=== PATIENT | male | born 1990 | race Caucasian/White ===

== ENCOUNTER → 2018-03-10 10:26 | Outpatient (CLI) | payer MEDICARE, MEDICAID, SELFPAY ==
--- NOTE | 2018-03-10 10:35 | XR_ITS ---
XR tibia fibula LT 2V CLINICAL INDICATION: Follow-up fracture ITS.REASON: FX LT PROX FIB ORDERING PHYSICIAN: Neeraj Dunn MD PATIENT AGE: 28 years FINDINGS: There are no previous exams available for comparison. No displaced fracture is evident. On the lateral view there is some cortical irregularity involving the anterior aspect of the neck of the fibula which could be due to a nondisplaced fracture. Please correlate with old studies if available. IMPRESSION: Possible nondisplaced fracture of the fibular neck anteriorly
== END ==
PROVIDERS: PCP Internal Medicine Adolescent Medicine; Visit Provider Internal Medicine Adolescent Medicine
DX: S82.832D Other fracture of upper and lower end of left fibula, subsequent encounter for closed fracture with routine healing (principal)
CPT/HCPCS: 73590

== ENCOUNTER → 2018-03-13 13:32 | Outpatient (CLI) | payer OTHER, MEDICARE, MEDICAID, SELFPAY ==
--- NOTE | 2018-03-13 13:35 | XR_ITS ---
XR knee LT 4V HISTORY: Pain following injury ITS.REASON: possible fib fracture ORDERING PHYSICIAN: Vishal Barnett MD PATIENT AGE: 28 years COMPARISON: 03/10/2018 FINDINGS: On the lateral view there remains a small area of cortical step-off involving the anterior aspect of the fibular neck is patient for nondisplaced fracture. No other significant anomalies are evident. IMPRESSION: Suspect nondisplaced fracture of the fibular neck
== END ==
PROVIDERS: PCP Internal Medicine Adolescent Medicine; Visit Provider Orthopaedic Surgery
DX: S80.02XA Contusion of left knee, initial encounter (principal)
CPT/HCPCS: 73564

== ENCOUNTER → 2018-03-24 12:45 | Outpatient (CLI) | payer OTHER, MEDICARE, MEDICAID, SELFPAY ==
[2018-03-24 13:00] LABS: Basophils % 0.6 % (0.1-2.0); Eosinophils # 0.2 K/mm3 (0.0-0.4); Eosinophils % 3.4 % (0.1-12.0); Hematocrit 48.5 % (42.0-52.0); Hemoglobin 15.6 g/dL (14.1-18.0); Lymphocytes % 15.8 K/mm3 (10-50); Mean Corpuscular HGB Conc 32.1 g/dL (31.8-35.4); Mean Corpuscular Hemoglobin 29.7 pg (27.0-31.2); Mean Corpuscular Volume 92.6 fl (80-94); Mean Platelet Volume 7.5 fl (7.4-10.4); Monocytes # 0.3 K/mm3 (0.1-1.0); Monocytes % 5.5 % (1.7-9.3); Neutrophils # 4.7 K/mm3 (1.8-7.8); Neutrophils % 74.7 % (37.0-80.0); Platelet Count 351 K/mm3 (142-424); Red Blood Count 5.24 M/mm3 (4.60-6.20); Red Cell Distribution Width 12.8 % (11.5-17.5); White Blood Count 6.2 K/mm3 (4.8-10.8)
[2018-03-24 14:57] LABS: Alanine Aminotransferase 22 U/L (12-78); Albumin Level 4.4 gm/dL (3.4-5.0); Albumin/Globulin Ratio 1.2 (1.1-1.8); Alkaline Phosphatase 138 U/L (46-116); Anion Gap 11.5 mEq/L (5-15); Aspartate Amino Transferase 19 U/L (15-37); Bilirubin,Direct 0.2 mg/dL (0.0-0.2); Bilirubin,Indirect 0.4 mg/dL (0.0-0.9); Bilirubin,Total 0.6 mg/dL (0.2-1.0); Blood Urea Nitrogen 9 mg/dL (7-18); Calcium 9.7 mg/dL (8.5-10.1); Carbon Dioxide 30 mmol/L (21.0-32.0); Chloride 101 mmol/L (98-107); Estimated Glomerular Filt Rate 88 ml/min (>60); GFR (African American) 107 ML/MIN (>60); Globulin 3.8 gm/dl (1.3-3.2); Glucose 124 mg/dL (74-106); Potassium 4.5 mmoL/L (3.5-5.1); Sodium 138 mmol/L (136-145); Total Protein,Serum 8.2 gm/dL (6.4-8.2)
== END ==
PROVIDERS: Visit Provider Internal Medicine Adolescent Medicine
DX: Z20.5 Contact with and (suspected) exposure to viral hepatitis (principal)
CPT/HCPCS: 36415; 80053; 80076; 85025

== ENCOUNTER → 2018-05-04 10:10 | Outpatient (CLI) | payer OTHER, MEDICARE, MEDICAID, SELFPAY ==
--- NOTE | 2018-05-04 10:15 | XR_ITS ---
XR knee LT 3V HISTORY: ITS.REASON: follow up fibula fx ORDERING PHYSICIAN: Vishal Barnett MD PATIENT AGE: 28 years COMPARISON: 03/13/2018 FINDINGS: There is some minimal curvilinear calcification along the neck of the fibula medially and may represent some callus formation from healing fracture. Fracture line is no longer apparent. No other significant anomalies are evident. IMPRESSION: Healing fibular neck fracture with good alignment
== END ==
PROVIDERS: PCP Internal Medicine Adolescent Medicine; Visit Provider Orthopaedic Surgery
DX: S80.02XA Contusion of left knee, initial encounter (principal)
CPT/HCPCS: 73562

== ENCOUNTER → 2019-04-16 13:32 | Outpatient (CLI) | payer MEDICARE, MEDICAID, SELFPAY ==
[2019-04-16 14:29] LABS: Basophils % 0.6 % (0.1-2.0); Eosinophils # 0.1 K/mm3 (0.0-0.4); Eosinophils % 1.6 % (0.1-12.0); Hematocrit 45.5 % (42.0-52.0); Hemoglobin 14.6 g/dL (14.1-18.0); Lymphocytes % 16.1 % (10-50); Mean Corpuscular HGB Conc 32.1 g/dL (31.8-35.4); Mean Corpuscular Hemoglobin 28.8 pg (27.0-31.2); Mean Corpuscular Volume 89.6 fl (80-94); Monocytes # 0.4 K/mm3 (0.1-1.0); Monocytes % 6.3 % (1.7-9.3); Neutrophils # 4.7 K/mm3 (1.8-7.8); Neutrophils % 75.5 % (37.0-80.0); Platelet Count 254 K/mm3 (142-424); Red Blood Count 5.08 M/mm3 (4.60-6.20); Red Cell Distribution Width 12.5 % (11.5-17.5); White Blood Count 6.2 K/mm3 (4.8-10.8)
[2019-04-16 15:38] LABS: Anion Gap 15.3 mEq/L (5-15); Blood Urea Nitrogen 10 mg/dL (7-18); Calcium 9.1 mg/dL (8.5-10.1); Carbon Dioxide 27 mmol/L (21.0-32.0); Chloride 101 mmol/L (98-107); Creatinine,Serum 1.05 mg/dL (0.70-1.30); Estimated Glomerular Filt Rate 83 ml/min (>60); GFR (African American) 100 ML/MIN (>60); Glucose 121 mg/dL (74-106); Potassium 4.3 mmoL/L (3.5-5.1); Sodium 139 mmol/L (136-145)
== END ==
PROVIDERS: Visit Provider Otolaryngology
DX: Z01.818 Encounter for other preprocedural examination (principal)
CPT/HCPCS: 36415; 80048; 85025; 93005

== ENCOUNTER → 2020-05-27 08:37 | Outpatient (CLI) | payer MEDICARE, OTHER, SELFPAY ==
[2020-05-27 09:03] LABS: Basophils # 0.1 K/mm3 (0-0.2); Basophils % 1.1 % (0.1-2.0); Eosinophils # 0.6 K/mm3 (0.0-0.4); Eosinophils % 9.1 % (0.1-12.0); Hematocrit 46.4 % (42.0-52.0); Hemoglobin 16.1 g/dL (14.1-18.0); Lymphocytes # 1.8 K/mm3 (0.7-4.5); Lymphocytes % 28.4 % (10-50); Mean Corpuscular HGB Conc 34.6 g/dL (31.8-35.4); Mean Corpuscular Hemoglobin 32.1 pg (27.0-31.2); Mean Corpuscular Volume 92.8 fl (80-94); Mean Platelet Volume 8.3 fl (7.4-10.4); Monocytes # 0.4 K/mm3 (0.1-1.0); Monocytes % 6.4 % (1.7-9.3); Neutrophils # 3.5 K/mm3 (1.8-7.8); Neutrophils % 54.9 % (37.0-80.0); Platelet Count 209 K/mm3 (142-424); Red Cell Distribution Width 13.2 % (11.5-17.5); White Blood Count 6.4 K/mm3 (4.8-10.8)
[2020-05-27 09:52] LABS: Chloride 104 mmol/L (98-107); Potassium 4.5 mmoL/L (3.5-5.1); Sodium 141 mmol/L (136-145)
[2020-05-27 09:54] LABS: Blood Urea Nitrogen 16 mg/dl (9-20); Estimated Glomerular Filt Rate 87 ml/min (>60); GFR (African American) 105 ML/MIN (>60)
[2020-05-27 09:55] LABS: Alanine Aminotransferase 10 U/L (12-78); Albumin Level 4.2 g/dl (3.5-5.0); Albumin/Globulin Ratio 1.6 (1.1-1.8); Alkaline Phosphatase 60 U/L (38-126); Anion Gap 14.5 mEq/L (5-15); Aspartate Amino Transferase 19 U/L (17-59); Bilirubin,Total 0.7 mg/dl (0.2-1.3); Calcium 9.3 mg/dl (8.4-10.2); Carbon Dioxide 27 mmol/L (22.0-30.0); Chol/HDL Ratio 3.4 (1-3.5); Cholesterol 132 mg/dl (140-200); Globulin 2.6 g/dL (1.3-3.2); Glucose 96 mg/dl (74-100); HDL Cholesterol 39 mg/dl (40-60); Total Protein,Serum 6.8 g/dl (6.3-8.2); Triglycerides 132 mg/dl (30-150); VLDL Cholesterol 26 mg/dL (0-40)
[2020-05-27 10:07] LABS: Direct LDL Cholesterol 76.36 mg/dL (100-129)
[2020-05-28 09:11] LABS: Hep A Ab, IgM Negative (Negative); Hepatitis B Core Antibody IgM Negative (Negative); Hepatitis B Surface Antigen Negative (Negative)
[2020-05-28 20:02] LABS: Hepatitis C Antibody <0.1 s/co ratio (0.0-0.9)
== END ==
PROVIDERS: Visit Provider Internal Medicine Adolescent Medicine
DX: Z20.5 Contact with and (suspected) exposure to viral hepatitis (principal); Z79.899 Other long term (current) drug therapy; R94.5 Abnormal results of liver function studies
CPT/HCPCS: 36415; 80053; 80061; 80074; 85025

== ENCOUNTER → 2021-04-18 11:02 | Outpatient (CLI) | payer MEDICARE, OTHER, SELFPAY ==
[2021-04-18 11:25] LABS: Basophils # 0.1 K/mm3 (0-0.2); Eosinophils # 0.2 K/mm3 (0.0-0.4); Eosinophils % 2.4 % (0.1-12.0); Hematocrit 47.3 % (42.0-52.0); Hemoglobin 16.4 g/dL (14.1-18.0); Lymphocytes # 1.1 K/mm3 (0.7-4.5); Lymphocytes % 13.3 % (10-50); Mean Corpuscular HGB Conc 34.6 g/dL (31.8-35.4); Mean Corpuscular Hemoglobin 30.9 pg (27.0-31.2); Mean Corpuscular Volume 89.1 fl (80-94); Mean Platelet Volume 7.8 fl (7.4-10.4); Monocytes # 0.4 K/mm3 (0.1-1.0); Monocytes % 4.8 % (1.7-9.3); Neutrophils # 6.5 K/mm3 (1.8-7.8); Neutrophils % 78.6 % (37.0-80.0); Platelet Count 225 K/mm3 (142-424); Red Blood Count 5.31 M/mm3 (4.60-6.20); Red Cell Distribution Width 13.2 % (11.5-17.5); White Blood Count 8.3 K/mm3 (4.8-10.8)
--- NOTE | 2021-04-18 11:28 | XR_ITS ---
PROCEDURE INFORMATION: Exam: XR Thoracic Spine Exam date and time: 04/18/2021 11:28 AM Age: 31 years old Clinical indication: Pain in thoracic spine; Patient HX: Bilateral thoracic pain/ lower back pain TECHNIQUE: Imaging protocol: XR of the thoracic spine. Views: 3 views. COMPARISON: CR CXR1VP XR chest portable 03/05/2018 12:19 AM FINDINGS: Bones/joints: Normal. No acute fracture. Normal alignment. Soft tissues: Unremarkable. IMPRESSION: No acute findings.
--- NOTE | 2021-04-18 11:28 | XR_ITS ---
PROCEDURE INFORMATION: Exam: XR Lumbosacral Spine Exam date and time: 04/18/2021 11:28 AM Age: 31 years old Clinical indication: Low back pain; Patient HX: Pain in thoracic spine and lower back pain TECHNIQUE: Imaging protocol: XR of the lumbosacral spine. Views: 4 or 5 views. COMPARISON: CR PEL1V XR pelvis 1-2V 03/05/2018 12:22 AM FINDINGS: Bones/joints: Normal. No acute fracture. Normal alignment. Soft tissues: Unremarkable. IMPRESSION: No acute findings.
--- NOTE | 2021-04-18 11:29 | XR_ITS ---
PROCEDURE INFORMATION: Exam: XR Abdomen Exam date and time: 04/18/2021 11:29 AM Age: 31 years old Clinical indication: Abdominal pain; Generalized TECHNIQUE: Imaging protocol: XR of the abdomen. Views: Frontal supine view of the abdomen. 1 View. COMPARISON: CR PEL1V XR pelvis 1-2V 03/05/2018 12:22 AM FINDINGS: Gastrointestinal tract: A large amount of stool is noted throughout the colon. The bowel gas pattern is nonobstructive and nonspecific. Bones/joints: Unremarkable. IMPRESSION: 1. A large amount of stool is noted throughout the colon. 2. The bowel gas pattern is nonobstructive and nonspecific.
[2021-04-18 12:27] LABS: Chloride 102 mmol/L (98-107)
[2021-04-18 12:28] LABS: Potassium 4.4 mmoL/L (3.5-5.1); Sodium 140 mmol/L (136-145)
[2021-04-18 12:30] LABS: Amylase 44 U/L (30-110)
[2021-04-18 12:31] LABS: Alanine Aminotransferase 12 U/L (12-78); Albumin/Globulin Ratio 1.6 (1.1-1.8); Alkaline Phosphatase 101 U/L (38-126); Anion Gap 15.4 mEq/L (5-15); Aspartate Amino Transferase 21 U/L (17-59); Bilirubin,Total 0.9 mg/dl (0.2-1.3); Blood Urea Nitrogen 9 mg/dl (9-20); Calcium 9.6 mg/dl (8.4-10.2); Carbon Dioxide 27 mmol/L (22.0-30.0); Estimated Glomerular Filt Rate 87 ml/min (>60); GFR (African American) 105 ML/MIN (>60); Globulin 3.1 g/dL (1.3-3.2); Glucose 129 mg/dl (74-100); Lipase 45 U/L (23-300); Total Protein,Serum 8.1 g/dl (6.3-8.2)
== END ==
PROVIDERS: Visit Provider Internal Medicine Adolescent Medicine
DX: R10.13 Epigastric pain (principal); M54.6 Pain in thoracic spine; M54.5 Low back pain; Z79.899 Other long term (current) drug therapy
CPT/HCPCS: 36415; 72072; 72110; 74018; 80053; 82150; 83690; 84443; 85025

== ENCOUNTER 2024-12-25 07:11 | Emergency (ER) | payer MEDICARE, OTHER, SELFPAY ==
[2024-12-25] VITALS (7 sets, daily range): BP systolic 128–139; BP diastolic 75–93; PULSE 78–107; RESP 16–18; TEMP 36.7; O2SAT 98–100; BMI 25.6
--- NOTE | 2024-12-25 07:22 | CT_ITS ---
FINAL REPORT TECHNIQUE: After the administration of intravenous contrast, axial images were obtained through the abdomen and pelvis by computed tomography. This study was performed with technique to keep radiation doses as low as reasonably achievable, (ALARA). Individualized dose reduction techniques using automated exposure control or adjustment of the MA and/or KV according to the patient's size were employed. CLINICAL HISTORY: Left gluteal ulcer/infection FINDINGS: Abdomen: The lung bases are clear. The liver is normal in size and attenuation. Gallbladder is contracted. The spleen is unremarkable. The adrenals are normal. The pancreas is unremarkable. The kidneys enhance appropriately. The aorta is normal in caliber. There is no free fluid or adenopathy. There is no bowel obstruction. There is a duplicated IVC is a normal variant. Pelvis: The appendix is normal. The urinary bladder is unremarkable. There is no free fluid or adenopathy. There is soft tissue density process in the left upper gluteal subcutaneous tissues, presumably inflammatory in nature. Abnormality is best seen on axial image 83 and measures 25 mm. This appears ulcerated. There is no significant drainable fluid collection identified. However, small abscess not excluded. Inflammatory changes extend to the gluteus shane muscle surface but is not intramuscular. IMPRESSION: Left upper gluteal presumed inflammatory process confined to the subcutaneous tissues. No significant drainable fluid collection identified. Reviewed, Interpreted and Dictated by Tommy Castellon MD Transcribed by Nidhi Zamora Authenticated and [facility]
--- NOTE | 2024-12-25 07:26 | ED_ITS ---
Discharge Plan Disposition Patient Disposition: Home, Self-Care Prescriptions Prescriptions: New sulfamethoxazole-trimethoprim [Bactrim] 400-80 mg tablet 1 tab PO BID 10 Days Qty: 20 0RF cephalexin 500 mg capsule 500 mg PO BID 7 Days Qty: 14 0RF No Action clonidine HCl 0.2 MG tablet 0.1 mg PO BID dextroamphetamine-amphetamine 20 MG tablet 20 mg PO DAILY risperidone 1 MG tablet 1 mg PO DAILY Referrals Follow up/Referrals: Trey Peña MD [Staff Physician] - See instructions Neeraj Dunn MD [Primary Care Provider] - See instructions Activity Restrictions/Add. Instructions Additional Instructions/Restrictions: He has wound on his buttock appears to be infected. Take the antibiotics prescribed to him until they are completely gone. Keep the wound clean by using gentle soap and water and showering every day. Use the gauze and wound dressings provided to you to keep it covered. You are being referred to a general surgeon for follow-up. Contact them at this number as soon as possible to schedule an appointment [phone]. He can take Tylenol and ibuprofen to help with the pain. If he develops any new or worsening symptoms, such as fever, worsening pain, worsening redness, or if you become concerned for his health for any reason, return to the emergency department for evaluation Clinical Impressions Clinical Impression: Diabetic ulcer of left buttock, Cellulitis of buttock Instructions Patient Instructions: Cellulitis, DI for Wound Infection Print Language Print Language: Setswana Discharge ED Provider: Kristofer Almaraz Adult HPI General Chief complaint: Wound/Laceration Stated complaint: cut on abd with redness Time Seen by Provider: 12/25/24 07:25 History of Present Illness HPI narrative: Emmanuel William is a 34-year-old male with a past medical history of ADD who presents to the emergency department with mine superintendent (aunt) for complaints of a wound to his left buttock. Patient states that he first noticed the area last night and believes that his belt has been digging into his skin. His and is worried that he may need stitches. He was up most of the night complaining of pain to the area and received 2 Tylenol and states that the pain has improved. He denies any fever or infections previously. He denies any history of diabetes. He states that he was last seen by his primary care doctor 2 months ago and the wound was not present at that time. He believes this all started last night. He states that he has not had any difficulty sitting on the area until last night. Patient smokes, does not drink alcohol, and does not use illicit substances. Related Data Home Medications ?Medication ?Instructions ?Recorded ?Confirmed clonidine HCl 0.2 mg tablet 0.1 mg PO BID adhd 03/05/18 12/25/24 dextroamphetamine-amphetamine 20 20 mg PO DAILY adhd 03/05/18 12/25/24 mg tablet risperidone 1 mg tablet 1 mg PO DAILY adhd 03/05/18 12/25/24 Previous Rx's ?Medication ?Instructions ?Recorded cephalexin 500 mg capsule 500 mg PO BID 7 days #14 caps 12/25/24 sulfamethoxazole 400 1 tab PO BID 10 days #20 tabs 12/25/24 mg-trimethoprim 80 mg tablet (Bactrim) Allergies Allergy/AdvReac Type Severity Reaction Status Date / Time aspirin AdvReac Unknown Verified 12/25/24 07:33 allergy reaction [facility] Disclaimer: The information contained in this section may have been updated after the patient was seen, as this information can be updated by other users. Social History Smoking Status: Current every day smoker tobacco type: cigarettes packs per day: 2 alcohol intake: never substance use type: denies use current occupational status: disabled Travel in the last 8 weeks: None household members: family current occupational exposures/hazards: No caffeine: Yes Have you lived/traveled outside [place] in past 30 days?: No Contact w/someone who lives/traveled outside US past 30 days?: No Exposure to someone with infectious disease in past 14 days?: No Do you have a fever (greater than 100.4 F or 38 C)?: No Have you tested positive for COVID-19: No Exposed to someone with COVID-19 in past 14 days?: No Do you have a sore throat?: No Do you have a cough?: No Do you have any weakness?: No Do you have any diarrhea?: No Are you experiencing any unusual bleeding?: No Do you have any muscle aches/pain?: No Do you have any abdominal pain?: No Are you experiencing loss of taste or smell?: No Other Medical History Have you received the Flu Vaccine for this season: Yes Have you received the Pneumonia Vaccine: No ROS Obtained: Yes Systems reviewed as appropriate & no additional complaints except as documented Physical Exam General General appearance: alert and in no apparent distress Head Head exam: atraumatic Eye Eye exam: Present normal appearance ENT ENT exam: Present normal external ear exam Neck Neck exam: Present full ROM Chest Chest inspection: Present symmetric chest wall rise Respiratory Respiratory exam: Present normal lung sounds bilaterally; Absent respiratory distress Cardiovascular Cardiovascular exam: Present regular rate and normal rhythm Abdominal Exam Abdominal exam: Present soft; Absent tenderness or guarding exam: Present deferred Extremities Exam Extremities exam: Present normal inspection Back Exam Back exam: Present normal inspection Neurological Exam Neurological exam: Present alert and oriented X3 Psychiatric Psychiatric exam: Present normal affect Skin Skin exam: Present warm and dry Expanded Skin Exam Comment: Ulcerated area to the left gluteus with surrounding erythema and pus draining from the wound. The area is grossly nontender. It is approximately 4 cm x 3 cm and then another ulcerated area directly adjacent to it and attached it is approximately 3 x 2 cm. Medical Decision Making Medical Records Screening: Per USPSTF and CDC recommendations, given the prevalence of disease in our region, it is our hospital?s policy to screen for HIV and viral Hepatitis for all patients aged 18 and over and those with ongoing risk factors. [place] Inquiry Pt receiving controlled substance: No Vital Signs: 12/25/24 07:24 12/25/24 07:30 12/25/24 07:46 Temperature 98.1 F Temperature Source Oral Pulse Rate 92 H 94 H Pulse Rate [Left] 107 H Respiratory Rate 18 Blood Pressure 134/87 128/83 Blood Pressure [Right Arm] 130/75 Blood Pressure Mean [Right Arm] 93 Blood Pressure Source Blood Pressure Source [Right Arm] Automatic Cuff Blood Pressure Position Blood Pressure Position [Right Arm] Sitting 02 Sat by Pulse Oximetry 100 98 99 Oxygen Delivery Method Room Air Room Air Room Air 12/25/24 08:00 12/25/24 08:16 12/25/24 08:30 Temperature Temperature Source Pulse Rate 84 80 83 Pulse Rate [Left] Respiratory Rate Blood Pressure 132/87 138/87 139/79 Blood Pressure [Right Arm] Blood Pressure Mean [Right Arm] Blood Pressure Source Blood Pressure Source [Right Arm] Blood Pressure Position Blood Pressure Position [Right Arm] 02 Sat by Pulse Oximetry 99 99 98 Oxygen Delivery Method Room Air Room Air Room Air 12/25/24 09:06 Temperature 98.1 F Temperature Source Oral Pulse Rate 78 Pulse Rate [Left] Respiratory Rate 16 Blood Pressure 132/93 H Blood Pressure [Right Arm] Blood Pressure Mean [Right Arm] Blood Pressure Source Automatic Cuff Blood Pressure Source [Right Arm] Blood Pressure Position Sitting Blood Pressure Position [Right Arm] 02 Sat by Pulse Oximetry Oxygen Delivery Method Room Air Lab Data Lab Results 12/25/24 07:31: WBC 8.0, RBC 4.81, Hgb 15.2, Hct 44.2, MCV 91.9, MCH 31.6 H, MCHC 34.4, RDW 12.2, Plt Count 357, MPV 9.8, Neut % (Auto) 54.3, Lymph % (Auto) 30.0, [place] % (Auto) 7.9, Eos % (Auto) 6.4, Baso % (Auto) 1.2, Neut # (Auto) 4.4, Lymph # (Auto) 2.4, [place] # (Auto) 0.6, Eos # (Auto) 0.5 H, Baso # (Auto) 0.1, Sodium 139, Potassium 4.0, Chloride 103, Carbon Dioxide 26, Anion Gap 14.0, BUN 10, Creatinine 1.00, Estimated Creat Clear 93, Estimated GFR 85, Est GFR ( Amer) 103, Glucose 127 H, Lactate 1.1, Calcium 9.4, Total Bilirubin 0.9, AST 22, ALT 17, Alkaline Phosphatase 95, Total Protein 8.0, Albumin 4.8, Globulin 3.2, Albumin/Globulin Ratio 1.5, HCV Ab LUCILLE w/Rflx PCR Qn Negative, HIV Ag/Ab Combo Qual Negative 12/25/24 07:31 12/25/24 07:31 Orders (Tests/Meds): ED MEDICATIONS Discontinued Medications Generic Name Dose Route Start Last Admin Trade Name Freq PRN Reason Stop Dose Admin Ibuprofen 600 mg 12/25/24 07:22 12/25/24 07:45 Ibuprofen 600 Mg Tablet PO 12/25/24 07:23 600 mg ONCE ONE Administration Iopamidol 75 ml 12/25/24 08:16 12/25/24 08:17 Iopamidol-370 (76%);100ml Bottle IV 12/25/24 08:17 75 ml ONCE ONE Administration Sodium Chloride 10 ml 12/25/24 08:16 12/25/24 08:16 Sodium Chloride 0.9% 10ml Syr (Rad Only) IV 12/25/24 08:17 10 ml ONCE ONE Administration ORDERS Category Date Time Status CT abdomen pelvis w con Stat Cat Scan 12/25/24 07:22 Completed CBC w/Auto Diff [Complete Blood Count Auto Diff] Stat Lab 12/25/24 07:31 Completed CMP [Comprehensive Metabolic Panel] Stat Lab 12/25/24 07:31 Completed HIV Combo Stat Lab 12/25/24 07:31 Completed Hepatitis C Ab Qual. 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 Patient believes that his belt has been digging into his skin on his buttock is complaining of pain overnight and received 2 Tylenol with improvement of the pain. He does note that it has been draining. He states that prior to last night, he did not feel like the wound was there and had been completely normal. He denies any history of diabetes or trauma. Nothing like this is ever happened before. On arrival, patient is mildly tachycardic with a heart rate 107 bpm, normotensive, breathing comfortably on room air with oxygen saturation at 100% SpO2. Physical exam, stated above, revealed an overall well-appearing male in no distress. He has what appears to be an ulcer along the left gluteus area that appears to be draining pus with surrounding erythema. This appears to be more chronic than just last night, however patient denies the wound being there previously. No crepitus is appreciated. Given the appearance of the wound, it appears more chronic in nature than 1 day. Differential diagnosis includes, but is not limited to: Necrotizing soft tissue infection, abscess, ulceration, cellulitis, among others. Workup in the emergency room included: CBC, CMP, lactic acid, blood culture, CT abdomen pelvis with IV contrast. Patient's pain was treated with 6 or milligrams of ibuprofen CT abdomen pelvis with IV contrast interpreted by me personally. No gas in the soft tissues, no identifiable abscess. Soft tissue defect over the left gluteus. See radiology report for details. There is no concern for necrotizing soft tissue infection on my interpretation. Lab work showed no leukocytosis, no anemia, electrolytes within normal limits, lactate normal at 1.1. Is felt that patient's ulceration is from long-term skin breakdown, which could be from his belt being too tight but it does appear infected. Will treat with a course of Bactrim and Keflex and give referral to general surgery for follow-up. No indication for acute surgical intervention at this time as he does not appear septic and there is no evidence of abscess or necrotizing soft tissue infection. Will give strict return precautions and instructed him to keep the wound clean and was provided gauze and dressings to applied to the wound. All questions were answered. He and family demonstrated understanding and were in agreement this plan. He was then discharged from the emergency department in stable condition Critical Care Critical Care Time Critical Care Time: No
[2024-12-25] MEDS: IBUPROFEN 600 MG TABLET PO (07:45)
--- NOTE | 2024-12-25 07:46 | PC.NURSE ---
I rounded on the pt. no new complaints at this time. no needs voiced. call delgado in reach.
[2024-12-25 07:47] LABS: Basophils # 0.1 K/mm3 (0-0.2); Basophils % 1.2 % (0.1-2.0); Eosinophils # 0.5 K/mm3 (0.0-0.4); Eosinophils % 6.4 % (0.1-12.0); Hematocrit 44.2 % (42.0-52.0); Hemoglobin 15.2 g/dL (14.1-18.0); Lymphocytes # 2.4 K/mm3 (0.7-4.5); Mean Corpuscular HGB Conc 34.4 g/dL (31.8-35.4); Mean Corpuscular Hemoglobin 31.6 pg (27.0-31.2); Mean Corpuscular Volume 91.9 fl (80-94); Mean Platelet Volume 9.8 fl (7.4-10.4); Monocytes # 0.6 K/mm3 (0.1-1.0); Monocytes % 7.9 % (1.7-9.3); Neutrophils # 4.4 K/mm3 (1.8-7.8); Neutrophils % 54.3 % (37.0-80.0); Platelet Count 357 K/mm3 (142-424); Red Blood Count 4.81 M/mm3 (4.60-6.20); Red Cell Distribution Width 12.2 % (11.5-17.5)
[2024-12-25 07:50] LABS: Albumin Level 4.8 g/dl (3.5-5.0); Chloride 103 mmol/L (98-107); Sodium 139 mmol/L (136-145)
[2024-12-25 07:53] LABS: Alanine Aminotransferase 17 U/L (12-78); Albumin/Globulin Ratio 1.5 (1.1-1.8); Alkaline Phosphatase 95 U/L (38-126); Aspartate Amino Transferase 22 U/L (17-59); Bilirubin,Total 0.9 mg/dl (0.2-1.3); Blood Urea Nitrogen 10 mg/dl (9-20); Calcium 9.4 mg/dl (8.4-10.2); Carbon Dioxide 26 mmol/L (22.0-30.0); Creatinine Clearance Estimated 93 mL/min (50-200); Estimated Glomerular Filt Rate 85 ml/min (>60); GFR (African American) 103 ML/MIN (>60); Globulin 3.2 g/dL (1.3-3.2); Glucose 127 mg/dl (74-100)
[2024-12-25 07:54] LABS: Lactic Acid 1.1 mmol/L (0.7-2.1)
[2024-12-25] MEDS: SODIUM CHLORIDE 0.9% 10ML SYR (RAD ONLY) 10 ML IV (08:16)
[2024-12-25] MEDS: IOPAMIDOL-370 (76%);100ML BOTTLE 75 ML IV (08:17)
[2024-12-25 09:40] LABS: HIV Combo NEGATIVE (Negative)
[2024-12-25 09:50] LABS: Hepatitis C Ab Qual. W/ RFX NEGATIVE (Negative)
== END 2024-12-25 09:07 | disposition home or self-care (01) ==
PROVIDERS: Emergency Provider Student in an Organized Health Care Education/Training Program; PCP Internal Medicine Adolescent Medicine
DX: L03.317 Cellulitis of buttock (principal); E11.622 Type 2 diabetes mellitus with other skin ulcer; F17.210 Nicotine dependence, cigarettes, uncomplicated; R52 Pain, unspecified
CPT/HCPCS: 74177; 80053; 83605; 85025; 86803; 87040; 87389; 99285; Q9967

== ENCOUNTER 2025-03-27 12:50 | Outpatient (CLI) | payer MEDICARE, OTHER, SELFPAY ==
--- NOTE | 2025-03-27 12:53 | XR_ITS ---
FINAL REPORT CLINICAL HISTORY: hip pain,,no trauma FINDINGS: LEFT HIP Three views were obtained. There is no fracture or dislocation. The joint spaces appear normal. No soft tissue abnormality is identified. IMPRESSION: No acute process. Reviewed, Interpreted and Dictated by Daryl Andrea MD Transcribed by Opal Rodriguez Authenticated and [facility]
== END 2025-03-27 23:59 | disposition home or self-care (01) ==
LOC: RAD 12:51
PROVIDERS: PCP Internal Medicine Adolescent Medicine; Visit Provider Physician Assistant
DX: M25.552 Pain in left hip (principal)
CPT/HCPCS: 73502